=== PATIENT | female | born 1990 | race Caucasian/White ===

== ENCOUNTER 2020-05-11 03:34 | Emergency (ER) | payer OTHER ==
[2020-05-11] MEDS ORDERED: TORADOL 10 MG T10 MG PO (06:39)
== END 2020-05-11 08:11 | disposition home or self-care (01) ==
LOC: ER1 03:34
DX: M54.41 Lumbago with sciatica, right side (principal); F17.200 Nicotine dependence, unspecified, uncomplicated; Z88.0 Allergy status to penicillin
CPT/HCPCS: 72100; 73502; 96372; 99283; J1885; J2060